=== PATIENT | female | born 1970 | race Caucasian/White ===

== ENCOUNTER 2020-05-12 14:05 | Outpatient (CLI) | payer OTHER ==
[2020-05-12 17:14] LABS: CHOL/HDL RATIO 3.4 (<4.4); CHOLESTEROL 200 mg/dL; HDL CHOLESTEROL 58 mg/dL; LDL CHOLESTEROL,CALCULATED 132 mg/dL; LDL/HDL RATIO 2.3 (<4.4); VLDL CHOLESTEROL 10 mg/dL
== END 2020-05-12 14:06 | disposition home or self-care (01) ==
LOC: LAB.S 14:05
PROVIDERS: ATTEND Nurse Practitioner Family
DX: Z13.220 Encounter for screening for lipoid disorders (principal)
CPT/HCPCS: 36415; 80061; 83721

== ENCOUNTER 2021-02-19 15:13 | Outpatient (CLI) | payer OTHER ==
--- NOTE | 2021-02-20 11:58 | Mammography Report ---
BILATERAL DIGITAL SCREENING MAMMOGRAM 3D/2D WITH EXAGGERATED CC: 02/19/2021 CLINICAL: Routine screening. Personal history of right breast cancer. Comparison is made to exams dated: 05/11/2014 specimen, 08/19/2012 mammogram, and 11/19/2011 mammogram - [facility]. The tissue of both breasts is heterogeneously dense. This may lowe r the sensitivity of mammography. There is a possible developing asymmetry in the left breast posterior depth medial region seen on the craniocaudal view only. This is more prominent. No other significant masses, calcifications, or other findings are seen in either breast. Right breas t scar marker. IMPRESSION: INCOMPLETE: NEEDS ADDITIONAL IMAGING EVALUATION The possible developing asymmetry in the left breast is indeterminate. Additional views with possible ultrasound are recommended. This exam was interpreted at Station ID: [id number]. NOTE: For mammograms, a report in lay terms will be sent to the patient. Approximately 15% of breast malignancies will not be visualized mammographically. In the management of a palpable breast mass, a negative mammogram must not discourage biopsy of a clinically suspicious lesion. Electronically Signed By: Tremaine Hargrove M.D. slc/:02/19/2021 17:04:28 ACR BI-RADS Category 0: Incomplete 3340F PARENCHYMAL PATTERN: (D) - The breast(s) demonstrate(s) heterogeneously dense fibroglandular jonathan hull. BI-RADS CATEGORY: (0) - 0 Mammo and US [id number] Immediate follow-up LATERALITY: (B)
== END 2021-02-19 15:14 | disposition home or self-care (01) ==
LOC: DI.S 15:13
DX: Z12.31 Encounter for screening mammogram for malignant neoplasm of breast (principal); Z08 Encounter for follow-up examination after completed treatment for malignant neoplasm; Z85.3 Personal history of malignant neoplasm of breast; N64.89 Other specified disorders of breast

== ENCOUNTER 2021-03-08 12:45 | Outpatient (CLI) | payer OTHER ==
--- NOTE | 2021-03-11 14:22 | Mammography Report ---
UNILATERAL LEFT DIGITAL DIAGNOSTIC MAMMOGRAM 3D/2D: 03/08/2021 CLINICAL: Patient returns today to evaluate an asymmetry in the left breast. Comparison is made to exams dated: 02/19/2021 mammogram - [facility], 05/11/2014 spe cimen, 05/30/2013 mammogram, 08/19/2012 mammogram, 11/19/2011 mammogram, and 12/17/2010 stereotactic bio psy - [facility]. The tissue of left breast is heterogeneously dense. This may l ower the sensitivity of mammography. There is an oval equal density asymmetry with an indistinct and circumscribed margin in the left [address] posterior depth medial region seen on the craniocaudal view only. No other significant masses or calcifications are seen in the breast. IMPRESSION: INCOMPLETE: NEEDS ADDITIONAL IMAGING EVALUATION The oval equal density asymmetry in the left breast is indeterminate. An ultrasound is recommended. Ultrasound will be performed immediately following the current exam. This exam was interpreted at Station ID: [id number]. NOTE: For mammograms, a report in lay terms will be sent to the patient. Approximately 15% of breast malignancies will not be visualized mammographically. In the management of a palpable breast mass, a negative mammogram must not discourage biopsy of a clinically suspicious lesion. Electronically Signed By: Aldo Dong M.D. ddp/:03/08/2021 13:39:53 ACR BI-RADS Category 0: Incomplete 3340F PARENCHYMAL PATTERN: (D) - The breast(s) demonstrate(s) heterogeneously dense fibroglandular jonathan hull. BI-RADS CATEGORY: (0) - 0 Ultrasound [id number] Immediate follow-up LATERALITY: (B)
--- NOTE | 2021-03-11 14:22 | Ultrasound Report ---
LIMITED ULTRASOUND OF LEFT BREAST: 03/08/2021 CLINICAL: Patient returns today to evaluate a focal asymmetry in the left breast. Comparison is made to exams dated: 03/08/2021 mammogram, 02/19/2021 mammogram - [facility], 05/11/2014 specimen, 05/30/2013 mammogram, 08/19/2012 mammogram, and 11/19/2011 mammogram - [facility]. Color flow ultrasound of the left breast 8-11 o'clock region was performed on the areas of interest. Calderon scale images of the real-time examination were reviewed. There is a benign 0.7 cm x 0.2 cm x 0.5 cm oval cyst in the left breast at 10 o'clock posterior depth 7 cm from the nipple. This oval cyst is anechoic with a well-defined boundary and posterior acousti c enhancement. This may correlate with mammography findings. Color flow imaging demonstrates that t here is no vascularity present. IMPRESSION: PROBABLY BENIGN The 0.7 cm x 0.2 cm x 0.5 cm oval cyst in the left breast is consistent with a simple cyst and is frandy ign. However, it is unclear if this correlates with the mammographic finding. A follow-up mammogram in 6 months is recommended to demonstrate stability. This exam was interpreted at Station ID: [id number]. Electronically Signed By: Aldo Dong M.D. ddp/:03/08/2021 14:32:02 Ultrasound BI-RADS: 3 Probably benign BI-RADS CATEGORY: (3) - 3 Mammogram [id number] 6 month follow-up LATERALITY: (B)
== END 2021-03-08 12:46 | disposition home or self-care (01) ==
LOC: DI 12:45
PROVIDERS: ATTEND Nurse Practitioner Family
DX: R92.8 Other abnormal and inconclusive findings on diagnostic imaging of breast (principal); N60.02 Solitary cyst of left breast

== ENCOUNTER 2022-05-08 08:00 | Outpatient (CLI) | payer OTHER ==
--- NOTE | 2022-05-08 17:09 | XRAY Report ---
PROCEDURE: Knee 4 View RT INDICATIONS: RIGHT KNEE PAIN TECHNIQUE: 4 views of the right knee(s) were acquired. COMPARISON: None. FINDINGS: Bones: No fractures or dislocations. No suspicious bony lesions. There is minimal bilateral medial compartment narrowing. No periarticular osteophytes. No erosions. Soft tissues: Trace right joint effusion. No suspicious soft tissue calcifications. IMPRESSION: Minimal bilateral medial compartment narrowing suggestive early arthritic change. No ero sions. Reviewed by: Marisol Hughes MD on 05/08/2022 5:08 PM PDT Approved by: Marisol Hughes MD on 05/08/2022 5:08 PM PDT Station ID: [id number]
== END 2022-05-08 23:59 | disposition home or self-care (01) ==
LOC: DI.WOS 08:00
PROVIDERS: ATTEND Physician Assistant
DX: M25.561 Pain in right knee (principal)

== ENCOUNTER 2022-07-24 12:44 | Outpatient (CLI) | payer OTHER ==
--- NOTE | 2022-07-25 11:38 | Mammography Report ---
BILATERAL DIGITAL DIAGNOSTIC MAMMOGRAM 3D/2D WITH EXAGGERATED CC: 07/24/2022 CLINICAL: 18 month follow up of the left breast, due for bilateral imaging. Comparison is made to exams dated: 03/08/2021 mammogram, 02/19/2021 mammogram, 03/08/2021 ultrasound - [facility], and 05/11/2014 specimen - [facility]. Both breasts are heterogeneously dense, which may obscure small masses (category c / 51-75% glandular tissue). There is an oval equal density asymmetry with an obscured margin in the left breast posterior depth m edial region seen on the craniocaudal view only. This is less prominent. No other significant masses, calcifications, or other findings are seen in either breast. IMPRESSION: PROBABLY BENIGN The oval equal density asymmetry in the left breast is probably benign. A follow-up left mammogram in 6 months is recommended to demonstrate stability. This exam was interpreted at Station ID: [id number]. NOTE: For mammograms, a report in lay terms will be sent to the patient. Approximately 15% of breast malignancies will not be visualized mammographically. In the management of a palpable breast mass, a negative mammogram must not discourage biopsy of a clinically suspicious lesion. Electronically Signed By: Elieser laguna/srinivas:07/24/2022 15:33:51 ACR BI-RADS Category 3: Probably benign 3343F PARENCHYMAL PATTERN: (D) - The breast(s) demonstrate(s) heterogeneously dense fibroglandular jonathan hull. BI-RADS CATEGORY: (3) - 3 Mammogram [id number] 6 month follow-up LATERALITY: (L)
== END 2022-07-24 12:45 | disposition home or self-care (01) ==
LOC: DI 12:44
PROVIDERS: ATTEND Nurse Practitioner Family
DX: N60.02 Solitary cyst of left breast (principal)

== ENCOUNTER 2022-08-29 14:41 | Outpatient (CLI) | payer OTHER ==
[2022-08-29 19:48] LABS: BASOPHILS # (AUTO) 0.1 10^3/uL (0.0-0.1); BASOPHILS % (AUTO) 1.4 %; EOSINOPHILS # (AUTO) 0.2 10^3/uL (0.0-0.7); EOSINOPHILS % (AUTO) 4.7 %; HCT - HEMATOCRIT 42.8 % (37.0-47.0); HGB - HEMOGLOBIN 13.5 g/dL (12.0-16.0); LYMPHOCYTES # (AUTO) 1.6 10^3/uL (1.5-3.5); LYMPHOCYTES % (AUTO) 31.2 %; MEAN CORPUSCULAR HEMOGLOBIN 30.2 pg (27.0-31.0); MEAN CORPUSCULAR HGB CONC 31.5 g/dL (32.0-36.0); MEAN CORPUSCULAR VOLUME 95.7 fL (81.0-99.0); MEAN PLATELET VOLUME 10.6 fL (7.9-10.8); MONOCYTES # (AUTO) 0.3 10^3/uL (0.0-1.0); MONOCYTES % (AUTO) 6.1 %; NEUTROPHILS # (AUTO) 2.9 10^3/uL (1.5-6.6); NEUTROPHILS % (AUTO) 56.4 %; PLT - PLATELET COUNT 344 10^3/uL (130-450); RED BLOOD COUNT 4.47 10^6/uL (4.20-5.40); RED CELL DISTRIBUTION WIDTH 12.4 % (12.0-15.0); WHITE BLOOD COUNT 5.1 x10^3/uL (4.8-10.8)
[2022-08-29 20:06] LABS: ALBUMIN 4.3 g/dL (3.2-5.5); ALBUMIN/GLOBULIN RATIO 1.3 (1.0-2.2); ALKALINE PHOSPHATASE 48 IU/L (42-121); ALT ALANINE AMINOTRANSFERASE 23 IU/L (10-60); AST ASPARTATE AMINOTRANSFERASE 24 IU/L (10-42); BUN - BLOOD UREA NITROGEN 20 mg/dL (6-20); CALCIUM 9.3 mg/dL (8.5-10.3); CARBON DIOXIDE - CO2 33 mmol/L (21-32); CHLORIDE 103 mmol/L (101-111); CHOLESTEROL 249 mg/dL; CREATININE 0.7 mg/dL (0.4-1.0); GFR - MDRD 88 (>89); GLUCOSE 110 mg/dL (70-100); HDL CHOLESTEROL 62 mg/dL; LDL CHOLESTEROL,CALCULATED 176 mg/dL; LDL/HDL RATIO 2.8 (<4.4); POTASSIUM 4.3 mmol/L (3.5-5.0); SODIUM 144 mmol/L (135-145); TOTAL PROTEIN 7.6 g/dL (6.7-8.2); TRIGLYCERIDES 55 mg/dL; VLDL CHOLESTEROL 11 mg/dL
[2022-08-29 20:16] LABS: THYROID STIMULATING HORMONE 1.05 uIU/mL (0.34-5.60)
[2022-09-01 08:08] LABS: HBsAG SCREEN Negative (Negative)
[2022-09-01 14:08] LABS: HCV AB <0.1 s/co ratio (0.0-0.9)
== END 2022-08-29 14:42 | disposition home or self-care (01) ==
LOC: LAB.S 14:41
PROVIDERS: ATTEND Nurse Practitioner Family
DX: E78.2 Mixed hyperlipidemia (principal); F41.8 Other specified anxiety disorders; Z11.59 Encounter for screening for other viral diseases
CPT/HCPCS: 36415; 80053; 80061; 83721; 84443; 85025; 86803; 87340

== ENCOUNTER 2023-06-09 15:27 | Outpatient (CLI) | payer OTHER | END 2023-06-09 15:28 | disposition home or self-care (01) | LOC: DI 15:27 | PROVIDERS: ATTEND Nurse Practitioner Family | DX: R01.2 Other cardiac sounds (principal) | CPT/HCPCS: 93306 ==